=== PATIENT | male | born 1990 | race Caucasian/White ===

== ENCOUNTER 2016-05-12 17:03 | Emergency (ER) | payer BC ==
[2016-05-12 16:48] LABS: INFLUENZA A POS (NEG); INFLUENZA B NEG (NEG)
[~2016-05-12 17:03] MED LIST: VICODIN 5/500 T1 TAB PO
== END 2016-05-12 17:49 | disposition home or self-care (01) ==
LOC: SED 17:03
PROVIDERS: Physician Assistant
DX: J10.1 Influenza due to other identified influenza virus with other respiratory manifestations (principal)
CPT/HCPCS: 87651; 87804; 99283